=== PATIENT | male | born 1950 | race Caucasian/White ===

== ENCOUNTER 2022-12-14 15:02 | Outpatient (CLI) | payer MEDICARE, SELFPAY ==
--- NOTE | 2022-12-14 15:28 | MR_ITS ---
WS: [id number] MRI BRAIN WITH HIGH-RESOLUTION IMAGING THROUGH THE INTERNAL AUDITORY CANALS WITHOUT AND WITH CONTRAST HISTORY: SENSORINEURAL HEARING LOSS,BILATERAL/TINNITUS,L EAR COMPARISON: None available. TECHNIQUE: Multiplanar, multisequence imaging is performed through the brain. Additional 3 mm imaging performed in multiple planes through the internal auditory canal. Postcontrast imaging with 18 ml's of MultiHance. No acute intracranial hemorrhage, midline shift, edema or mass effect. Mild small vessel ischemic changes in the periventricular white matter. There is also mild symmetric atrophy within the cerebrum and cerebellum. No prior infarct. No mass at the cerebellopontine angle. Petrous ridges and Meckel's cave are negative. No enhancing masses or mass effect. Ventricles and extra-axial spaces are normal. No inferior displacement of cerebellar tonsils. Clivus and pituitary gland are normal. Internal and external auditory canals: Unremarkable. Cranial nerves VII and VIII complexes: Unremarkable. No enhancement or mass. Cerebellopontine angles: Normal. Paranasal sinuses: Normal. Mastoid air cells: Normal. Calvarium and scalp: Normal. Visualized [place] and dural venous sinuses demonstrate no abnormality. MR/MR iac's wo/w con* [id number] IMPRESSION: 1. No mass or signal abnormalities at the cerebellopontine angles or internal auditory canals. 2. Mild atrophy and small vessel ischemic changes. No prior infarct.
[2022-12-14] MEDS: gadobenate dimeglumine 20 mL vial IV (17:15)
== END 2022-12-14 15:03 | disposition home or self-care (01) ==
PROVIDERS: Visit Provider Specialist
DX: H93.12 Tinnitus, left ear (principal)
CPT/HCPCS: 70553; A9577